=== PATIENT | female | born 1975 | race Caucasian/White ===

== ENCOUNTER → 2022-01-10 15:09 | Outpatient (CLI) | payer BC, SELFPAY ==
--- NOTE | ~2022-01-10 | US_ITS ---
US thyroid INDICATION: Thyroid goiter. TECHNIQUE: Real-time sonographic images of the thyroid gland were obtained. COMPARISON: No prior studies for comparison. FINDINGS: The right thyroid lobe measures 5.7 x 1.8 x 2.1 cm. The left thyroid lobe measures 5 x 1.1 x 1.8 cm. There is normal echotexture and echogenicity throughout the thyroid gland. No discrete nod ules identified. Normal vascular flow is present. IMPRESSION: 1. Mildly enlarged thyroid gland without discrete mass. Reviewed, dictated and finalized at location A.
== END ==
PROVIDERS: PCP Nurse Practitioner Family; Visit Provider Nurse Practitioner Family
DX: E04.9 Nontoxic goiter, unspecified (principal)
CPT/HCPCS: 76536

== ENCOUNTER 2022-03-07 10:06 | Outpatient (CLI) | payer BC, SELFPAY ==
[2022-03-07 11:03] LABS: Alanine Aminotransferase 22 U/L (6-35); Albumin Level 4.5 g/dL (3.5-5.1); Alkaline Phosphatase 48 U/L (38-126); Anion Gap 11 mmol/L (8-16); Aspartate Amino Transferase 24 U/L (14-36); Bilirubin,Total 0.4 mg/dL (0.2-1.3); Blood Urea Nitrogen 8 mg/dL (7-17); Calcium 9.1 mg/dL (8.4-10.2); Carbon Dioxide 24 mmol/L (22-30); Chloride 99 mmol/L (98-107); Estimated Glomerular Filt Rate > 60; Glucose 92 mg/dL (65-110); Potassium 4.2 mmol/L (3.4-5.0); Sodium 134 mmol/L (137-145)
[2022-03-07 12:27] LABS: Free T4 Free Thyroxine 1.17 ng/mL (0.78-2.19)
[2022-03-11 14:21] LABS: Thyroid Stimulating Immunoglob <89 % baseline (<140)
[2022-03-12 04:58] LABS: Thyroid Peroxidase Antibodies <1 IU/mL (<9)
[2022-03-12 14:55] LABS: Triiodothyronine T3 Free 3.1 pg/mL (2.3-4.2)
[2022-03-14 10:27] LABS: Gliadin AB, IgG 81.6; TTG IGA AB >250.0
== END 2022-03-07 10:07 | disposition home or self-care (01) ==
LOC: ANHLAB 10:08
PROVIDERS: PCP Nurse Practitioner Family; Visit Provider Internal Medicine Endocrinology, Diabetes & Metabolism
DX: E04.9 Nontoxic goiter, unspecified (principal); R14.0 Abdominal distension (gaseous)
CPT/HCPCS: 36415; 80053; 83516; 84439; 84443; 84445; 84481; 86003; 86376

== ENCOUNTER 2022-03-29 08:38 | Outpatient (CLI) | payer BC, SELFPAY ==
[2022-04-02 20:57] LABS: Fecal Fat, Ql Normal (Normal)
[2022-04-12 17:09] LABS: Pancreatic Elastase, Stool >500 mcg/g
== END 2022-03-29 08:39 | disposition home or self-care (01) ==
PROVIDERS: PCP Nurse Practitioner Family; Visit Provider Internal Medicine Endocrinology, Diabetes & Metabolism
DX: E04.9 Nontoxic goiter, unspecified (principal); R14.0 Abdominal distension (gaseous)
CPT/HCPCS: 36415; 82542; 82653; 82705

== ENCOUNTER → 2023-03-06 09:28 | Outpatient (CLI) | payer BC, SELFPAY ==
--- NOTE | ~2023-03-06 | MMUS_ITS ---
EXAMINATION: MM diagnostic [place] BI w nelson, US breast BI limited HISTORY: Bilateral fibrocystic changes versus masses in the outer breast on clinical examination TECHNIQUE: Craniocaudal, mediolateral, and mediolateral oblique 3-D tomosynthesis images of the breas ts were performed and synthetic 2-D images were generated. CAD analysis was submitted and interpreted . High resolution limited bilateral breast ultrasound was performed. COMPARISON: 02/02/2018, 04/11/2015, 07/04/2014, 06/26/2014 BREAST PARENCHYMAL COMPOSITION: The breasts are heterogeneously dense, which may obscure small masses . FINDINGS: MAMMOGRAPHIC FINDINGS: No suspicious mass, calcification, or architectural distortion are identified in either breast to sug gest malignancy. There has been no suspicious interval change. No mammographic correlate is identifie d for the reported palpable abnormalities of either breast. ULTRASOUND: No definite sonographically detected mass is identified in the area of clinical concern in the right breast. There appears to be a 1.1 x 0.7 cm oval, circumscribed, parallel, hypoechoic mass with no pos terior features or internal vascularity at the 1:00 location, 3.5 cm from the nipple in the left [address]. Hypoechoic masses at the 2:00 location, 4 cm from the nipple measuring 8 mm x 2 mm and 4 mm x 3 m m demonstrating similar sonographic features. A 5 mm x 3 mm mass at the 2:00 location 10 cm from the nipple has the appearance of an intramammary lymph node and is mammographically stable. IMPRESSION: 1. Probably benign left breast masses. 2. Recommend 6 month follow-up left diagnostic mammogram and ultrasound. Clinical follow-up is recomm ended for the palpable abnormalities of the right breast. BI-RADS category 3, probably benign findings. Reviewed, dictated and finalized at location A. IMPRESSION: 1. Probably benign left breast masses. 2. Recommend 6 month follow-up left diagnostic mammogram and ultrasound. Clinic al follow-up is recommended for the palpable abnormalities of the right breast. BI-RADS category 3, probably benign findings.
== END ==
PROVIDERS: PCP Nurse Practitioner; Visit Provider Nurse Practitioner
DX: N63.0 Unspecified lump in unspecified breast (principal)
CPT/HCPCS: 76642; 77062; 77066; G0279

== ENCOUNTER 2023-12-04 09:28 | Outpatient (CLI) | payer BC, SELFPAY ==
--- NOTE | ~2023-12-04 | XR_ITS ---
Left wrist Technique: PA, oblique, lateral, and ulnar deviation views were obtained. Clinical History: Pain Findings: No acute fracture or dislocation is seen. Osseous alignment is anatomic. Joint spaces are p reserved. Soft tissues are unremarkable. Impression: Unremarkable left wrist radiographs. Reviewed, dictated and finalized at location . Impression: Unremarkable left wrist radiographs.
== END 2023-12-04 09:29 ==
PROVIDERS: PCP Nurse Practitioner Family
DX: M79.642 Pain in left hand (principal)
CPT/HCPCS: 73110

== ENCOUNTER 2024-04-19 16:39 | Outpatient (CLI) | payer BC, SELFPAY ==
--- NOTE | ~2024-04-19 | XR_ITS ---
CHEST RADIOGRAPH, PA AND LATERAL CLINICAL HISTORY: illness with lingering cough. Pneumonia? . COMPARISON: None available TECHNIQUE: PA and lateral views of the chest. FINDINGS The cardiomediastinal silhouette is unremarkable. The lungs are clear. Visualized osseous structures and soft tissues are unremarkable. IMPRESSION: No focal infiltrate or effusion. Reviewed, dictated and finalized at location A. FORMER
== END 2024-04-19 16:40 | disposition home or self-care (01) ==
LOC: MICIMG 16:39
PROVIDERS: PCP Nurse Practitioner Family; Visit Provider Nurse Practitioner Family
DX: R05.9 Cough, unspecified (principal)
CPT/HCPCS: 71046